=== PATIENT | male | born 1965 | race Two or more races ===

== ENCOUNTER → 2018-04-11 | Outpatient (CLI) | payer OTHER ==
[2018-04-04 11:00] VITALS: BP 105/65
[~2018-04-11] MED LIST: BUPR150T15 PO; FLUO20CA16 PO; NAPR250T6 PO; PRAZ2CAP PO; TAMS0.4C97 PO
--- NOTE | 2018-04-11 15:59 | RAD ---
EXAM: Supine AP view of the abdomen DATE: 04/11/2018 12:00 AM INDICATION: URETERAL CALCULUS, RT SIDE COMPARISON: Prior CT 04/03/2018, prior radiograph 04/04/2018 FINDINGS: No abnormal small or large bowel dilatation. Moderate colonic stool content. No abnormal soft tissue mass effect. The calculus seen on prior CT at the right ureteropelvic junction is not clearly seen on today's exam. This may be due to distal migration. The calcification seen on prior radiograph over the right sacrum is now lower, possibly within the bladder. Evaluation for free intraperitoneal gas is limited on this supine exam. IMPRESSION: 1. No evidence for bowel obstruction. 2. Active positioning of the previously seen ureteral calculus is limited by radiographs, possibly within the bladder or distal right ureter. Alternatively the calcification projecting over the lower pelvis/bladder may represent a pelvic phlebolith. Electronically signed by: West Pelletier MD (04/11/2018 3:54 PM) [id number]
== END | disposition home or self-care (01) ==
LOC: RAD 15:22
PROVIDERS: ATTEND Family Medicine
DX: N20.1 Calculus of ureter (principal)
CPT/HCPCS: 74018